=== PATIENT | female | born 1955 | race Asian ===

== ENCOUNTER 2017-01-21 06:18 | Day surgery (SDC) | payer OTHER ==
[~2017-01-21] VITALS: Ht 154.9 cm; Wt 73.1 kg
[2017-01-21] MEDS ORDERED: HCTZ (07:07)
[2017-01-21] MEDS ORDERED: ASPIRIN (07:07)
[2017-01-21] MEDS ORDERED: DIOVAN (07:07)
[2017-01-21 07:09] VITALS: Ht 154.9 cm; Wt 73.1 kg
[2017-01-21 07:33] VITALS: BP 139/79; PULSE 86; RESP 18
--- NOTE | 2017-01-21 08:49 | OPPN ---
Date/Time of Note Date/Time of Note DATE: 01/21/17 TIME: 08:47 Operative Report Preoperative Diagnosis Screening Postoperative Diagnosis Poor prep making the exam suboptimal Nonspecific colitis and biopsies were taken for histopathology Internal hemorrhoids Operation/Procedure Performed Colonoscopy and biopsy Surgeon see signature line occupational therapist assistants None Anesthesia: moderate sedation Estimated blood loss: none Transfusion Required none Specimen Mucosal biopsy of the colon Grafts/Implants none Complications none VALERIE NOVA MD Jan 21, 2017 08:49
[2017-01-21] MEDS ORDERED: MIDAZOLAM 1 MG/ML 2 ML INJ ONE ×3 (08:51→08:52)
[2017-01-21] MEDS ORDERED: FENTAnyl 50 MCG/ML VIAL ONE (08:51)
[2017-01-21] MEDS ORDERED: EPINEPHrine 0.1 MG/ML SYG ONE (08:51)
[2017-01-21 09:06] VITALS: BP 124/65; PULSE 94; RESP 18
--- NOTE | 2017-01-21 10:51 | GILP ---
DATE OF PROCEDURE: 01/21/2017 NAME OF PROCEDURES: Colonoscopy and biopsy. SURGEON: Valerie Chaparro MD. PREOPERATIVE DIAGNOSIS: Screening colonoscopy. POSTOPERATIVE DIAGNOSES: 1. Colonoscopy all the way to the cecum. 2. Poor prep making the exam somewhat suboptimal. 3. Nonspecific colitis and biopsies were taken for histopathology. 4. Internal hemorrhoids. INDICATION FOR THE PROCEDURE: Ms. Oneida Ayoub is a 61-year-old female patient who was note d to have positive occult blood in stool. She never got screening colonoscopy, so the patient was s cheduled for colonoscopy for further evaluation. The procedure and possible complications were well explained to the patient. The patient understood and consented to the procedure. DESCRIPTION OF PROCEDURE: Under the influence of fentanyl and Versed, the colonoscope was carefully introduced in the rectum and under direct vision, it was advanced all the way to the cecum. FINDINGS: The patient had poor prep making the exam suboptimal. She was noted to have some nonspec ific colitis, which is patchy in nature and biopsies were taken for histopathology. She had interna l hemorrhoids. She tolerated the procedure well and there was no complication from the procedure. At the end of th e procedures, she was awake with stable vital signs and she was discharged [facility] IMPRESSION: Please see postoperative diagnosis. PLAN: 1. Await histopathology report. 2. Because of the poor prep and suboptimal nature of the examination, she will need repeat colonosc opy with better preparation in 1 year. 3. The patient is very resistant to narcotics and she will need monitored anesthesia care for the n ext procedure. Dictated By: VALERIE SINGER/LAURIE Conf#: [id number] DID#: [id number]
== END 2017-01-21 10:24 | disposition home or self-care (01) ==
LOC: GIL 06:18
PROVIDERS: ATTEND Internal Medicine Gastroenterology
DX: Z12.11 Encounter for screening for malignant neoplasm of colon (principal); K52.9 Noninfective gastroenteritis and colitis, unspecified; K64.8 Other hemorrhoids; I10 Essential (primary) hypertension
CPT/HCPCS: 45380; 88305; J0171; J2250; J3010